=== PATIENT | male | born 1965 | race Caucasian/White ===

== ENCOUNTER 2016-06-20 13:28 | Inpatient (IN) | payer OTHER, MEDICAID ==
[~2016-06-20] VITALS: Ht 172.7 cm; Wt 120.7 kg
[2016-06-20 13:40] VITALS: BP 180/71; PULSE 98; RESP 18; TEMP 97; O2SAT 100
--- NOTE | 2016-06-20 13:40 | NUR ---
Patient triaged and placed in waiting room. VSS and patient appears in no acute distress at this time. Awaiting available bed, and MSE completed
--- NOTE | 2016-06-20 13:40 | NUR ---
ER examining patient in [facility].
--- NOTE | 2016-06-20 14:00 | NUR ---
# 20 gauge angiocath placed to R AC. Use of asceptic technique. Opsite placed over site. Blood return noted. Flushed with 10 cc of normal saline. No evidence of infiltration noted. Patient tolerated well.
--- NOTE | 2016-06-20 14:14 | NUR ---
Placed in room 05 . Placed on threat monitoring analyst, blood pressure machine and pulse oximeter. To gown for exam. Side rails up. Report given to Jeremie.
[2016-06-20 14:18] LABS: BASOPHILS # (AUTO) 0.1 K/uL (0.0-0.2); EOSINOPHILS # (AUTO) 0.2 K/uL (0.0-0.4); EOSINOPHILS % (AUTO) 2.4 % (0.0-4.0); HEMATOCRIT 47.3 % (36-54); HEMOGLOBIN 15.9 g/dL (14.0-18.0); LYMPHOCYTES # (AUTO) 2.2 K/uL (1.0-5.5); LYMPHOCYTES % (AUTO) 30.4 % (20.5-51.5); MEAN CORPUSCULAR HEMOGLOBIN 29 pg (27-31); MEAN CORPUSCULAR HGB CONC 34 % (32-36); MEAN CORPUSCULAR VOLUME 87 fL (79.0-98.0); MONOCYTES # (AUTO) 0.8 K/uL (0.0-1.0); NEUTROPHILS # (AUTO) 3.9 K/uL (1.8-7.7); NEUTROPHILS % (AUTO) 55.2 % (40.0-70.0); PLATELET COUNT (AUTO) 211 K/uL (130-430); RED BLOOD CELL COUNT(AUTO) 5.45 MIL/uL (4.2-6.2); RED CELL DISTRIBUTION WIDTH 12.8 % (9.0-15.0); WHITE BLOOD COUNT (AUTO) 7.2 K/uL (4.8-10.8)
[2016-06-20] MEDS ORDERED: NACL 0.9% 1,000 ML IV ONE (14:30)
[2016-06-20] MEDS ORDERED: INSULIN REGULAR, HUMAN 10 UNITS/0.1 ML INJ IVP ONE ×2 (14:30→15:15)
[2016-06-20 14:31] LABS: INR 0.9 (0.80-1.20); PROTHROMBIN TIME 9.6 SECS (9.5-12.5)
[2016-06-20 14:41] LABS: ALBUMIN 3.8 g/dL (3.4-4.8); ANION GAP 11 (5-15); CALCIUM 9.3 mg/dL (8.4-11.0); CHLORIDE 90 mmol/L (98-107); CREATININE 1.41 mg/dL (0.55-1.30); POTASSIUM 3.9 mmol/L (3.5-5.1); SODIUM SERUM 126 mmol/L (136-145); TOTAL BILIRUBIN 0.5 mg/dL (0.0-1.0); UREA NITROGEN, BLOOD 19 mg/dL (8-21)
[2016-06-20 14:42] LABS: GFR AFRICAN AMERICAN 68 mL/min (>90)
[2016-06-20 14:44] LABS: GLUCOSE 589 mg/dL (70-99)
[2016-06-20 14:59] LABS: ACETONE, SERUM SMALL (NEGATIVE)
--- NOTE | 2016-06-20 15:00 | NUR ---
Medication reconciliation unable to be completed d/t patient not having a list. Patient does not know correct doses.
[2016-06-20 15:17] LABS: ALANINE AMINOTRANSFERASE 47 U/L (12-78); ASPARTATE AMINOTRANSFERASE 144 U/L (10-37)
[2016-06-20] MEDS ORDERED: HYDROcodone/ACETAMIN 5-325 MG TAB (NORCO/ VICODIN) PO ONE (15:30)
[2016-06-20] MEDS ORDERED: ONDANSETRON 4 MG ODT TAB PO ONE (15:30)
[2016-06-20] MEDS ORDERED: AZITHROMYCIN 250 MG TABLET PO ONE (15:30)
[2016-06-20] MEDS ORDERED: cefTRIAXone 1 GM IVPB PREMIX 50 ML IV ONE (15:30)
--- NOTE | 2016-06-20 15:46 | NUR ---
Medicated with [place] per Dr. Gallagher's order for 10/10 bilateral upper and lower extremity pain. teach back fall precautions, requested pt to lay in gurney, pt refused states he only wants to sit on edge of gurney and that he takes more than one [place] at home on a regular basis. Bed low and one side railing up.
--- NOTE | 2016-06-20 15:57 | NUR ---
call placed for admit bed to [facility] Charge
[2016-06-20] MEDS ORDERED: DEXTROSE 50% JECT 50 ML DISP.SYRIN IVP PRN (16:30)
--- NOTE | 2016-06-20 16:30 | NUR ---
ADMIT NOTE Received pt from ER to the floor with a diagnosis of CHEST PAIN. Admission process initiated. patient oriented to pain management, safety and call light-teach back done.
--- NOTE | 2016-06-20 16:42 | NUR ---
Patient will be admitted to care of Dr. Marvin. Admitted to telemetry unit. Will go to room 108. Belongings list completed. Summary report printed. Report given to VERONICA Roche.
[2016-06-20] MEDS ORDERED: ASPIRIN 325 MG TABLET (ECOTRIN) PO ONE (16:45)
[2016-06-20 16:48] VITALS: BP 165/91; PULSE 110; RESP 17; TEMP 98.7; O2SAT 93
[2016-06-20] MEDS: cloNIDine HCL 0.1 MG TABLET PO PRN (16:56)
[2016-06-20] MEDS ORDERED: HYDR-2489 PO (17:36)
[2016-06-20] MEDS ORDERED: METF-510 PO (17:36)
[2016-06-20] MEDS ORDERED: GLIP-172 PO (17:36)
[2016-06-20] MEDS ORDERED: LOSA50TA3 PO (17:36)
[2016-06-20] MEDS ORDERED: CANA100T PO (17:36)
[2016-06-20] MEDS ORDERED: ZOLP5TAB2 PO (17:36)
[2016-06-20] MEDS: INSULIN REGULAR, HUMAN 100 UNITS/ML, 10 ML VIAL (novoLIN R) SUBCUT PRN (18:20)
--- NOTE | 2016-06-20 18:26 | NUR ---
CLOSING NOTE: PATIENT IS RESTING COMFORTABLY IN BED. NO S/S OF DISTRESS OR SOB. PATIENT IS ALERT AND ORIENTED, ABLE TO EXPRESS NEEDS, AND ASK FOR ASSISTANCE. CALL LIGHT IN REACH, BED IN LOWEST POSITION, AND WILL GIVE REPORT TO NIGHT NURSE.
[2016-06-20 20:18] VITALS: BP 143/93; PULSE 102; RESP 19; TEMP 98.2; O2SAT 95
--- NOTE | 2016-06-20 21:48 | NUR ---
PM ASSESSMENT: Received endorsement for this patient at this time. Patient sleeping comfortably. Breathing even and unlabored. No acute distress or SOB noted. IV access to the right forearm G20 on saline lock. No signs of redness or swelling at the IV site. HOB elevated at 20 degrees with 2 side rails up and bed in lowest level. Bed brakes locked. Call light within reach. Will continue to monitor.
--- NOTE | 2016-06-21 00:11 | NUR ---
BLOOD SUGAR: Scheduled accu-check done. Blood sugar at this time 331. Regular insulin coverage given. No signs of hyperglycemia noted. Will continue to monitor.
[2016-06-21] MEDS: INSULIN REGULAR, HUMAN 100 UNITS/ML, 10 ML VIAL (novoLIN R) SUBCUT PRN ×5 (00:12→22:54)
--- NOTE | 2016-06-21 00:37 | NUR ---
MD HSU CALLED [facility] AT SPOKE WITH DR.AZAB HANNA [facility] ICU RN.
[2016-06-21] MEDS ORDERED: traMADol HCL HCL 50 MG TABLET (ULTRAM) PO PRN (01:00)
[2016-06-21] MEDS ORDERED: traMADol HCL HCL 50 MG TABLET (ULTRAM) ONE (01:06)
--- NOTE | 2016-06-21 01:15 | NUR ---
RN ROUNDS: Patient alert and oriented x 4. Able to make needs know verbally. Patient complained of pain about 7/10 to his arms and legs. Called production director for pain med order. Spoke with Dr. Stokes and ordered Ultram Q6 prn. Order noted and carried out. No acute distress noted on the patient nor SOB. Will continue to monitor.
[2016-06-21 01:19] VITALS: BP 136/98; PULSE 87; RESP 16; TEMP 96.6; O2SAT 95
--- NOTE | 2016-06-21 02:10 | NUR ---
PT UPDATE: Patient was given pain medication Ultram earlier. Pain medication effective d/t patient sleeping comfortably at this time. No acute distress or SOB noted. Will continue to monitor.
--- NOTE | 2016-06-21 03:36 | NUR ---
RN ROUNDS: No significant changes with the patient at this time. Vital signs stable. Patient in no acute distress or SOB at this time. Safety and fall precautions in place. Will continue to monitor.
[2016-06-21 04:00] VITALS: BP 140/97; PULSE 90; RESP 18; TEMP 97.9; O2SAT 98
--- NOTE | 2016-06-21 06:51 | NUR ---
CLOSING NOTE: Patient still sleeping at this time. No acute distress or SOB noted. No signs of hyper or hypoglycemia noted throughout the shift. Fall and safety precautions observed. Will endorse to next shift nurse.
[2016-06-21 07:41] LABS: CHOLESTEROL 206 mg/dL (<200); HDL CHOLESTEROL 26 mg/dL (>45); LDL CHOLESTEROL 60 mg/dL (<100); TRIGLYCERIDES 844 mg/dL (30-150)
--- NOTE | 2016-06-21 07:45 | NUR ---
Initial Note Received pt in bed, no s/s of distress or sob noted, pt has pain 2/10, back pain tolerable at this time, pt in stable condition. Bed at lowest position, call light within reach, will continue to monitor pt for any changes. Fall precautions in place, Dr Marvin rounding and speaking with pt at this time. Pt has no c/o chest pain at this time.
[2016-06-21 07:46] VITALS: BP 181/113; PULSE 83; RESP 18; TEMP 98.6; O2SAT 96
--- NOTE | 2016-06-21 07:47 | NUR ---
ROUNDS Dr Yon cedeno, aware of patients condition, aware of patients high blood pressure and that there are no medications for his high blood pressure, per he will order some. Addendum: 06/21/16 at 1809 by Jessica Ravi RN PT ASYMPTOMATIC, NO HEADACHE OR DIZZINESS PER PT.
[2016-06-21] MEDS: cloNIDine HCL 0.1 MG TABLET PO PRN (08:00)
[2016-06-21] MEDS ORDERED: cloNIDine HCL 0.1 MG TABLET PO PRN (08:00)
[2016-06-21 08:13] LABS: CALCIUM 8.1 mg/dL (8.4-11.0); CREATININE 1.12 mg/dL (0.55-1.30); POTASSIUM 3.6 mmol/L (3.5-5.1); TOTAL BILIRUBIN 0.3 mg/dL (0.0-1.0)
[2016-06-21 08:14] LABS: ALBUMIN 2.8 g/dL (3.4-4.8); TOTAL PROTEIN, SERUM 6.3 g/dL (6.4-8.3)
--- NOTE | 2016-06-21 08:39 | NUR ---
Consults Order received for three consults 1)Dr Fong for Neuropathy 2) Dr Ventura for depression- Spoke with Lluvia for both consults (exchange), 3) Dr Silverio for pain management, spoke with Vannessa. Will follow up as needed.
[2016-06-21] MEDS: glipiZIDE XL 5 MG TAB ( GLUCOTROL XL) PO SCH ×2 (08:40→20:41)
[2016-06-21] MEDS: LOSARTAN POTASSIUM 50 MG TABLET (COZAAR) PO SCH (08:40)
[2016-06-21] MEDS: ASPIRIN 325 MG TABLET (ECOTRIN) PO SCH (08:40)
[2016-06-21] MEDS: MORPHINE 2 MG/ML INJ. SYRINGE IVP PRN ×3 (08:41→16:36)
--- NOTE | 2016-06-21 09:00 | NUR ---
MEDICATION REASSESSMENT PATIENTS BLOOD PRESSURE IS 142/98, HEART RATE OF 91, PT ASYMPTOMATIC, NO S/S OF DISTRESS OR SOB NOTED, PT HAS NO C/O PAIN AT THIS TIME, PT IN STABLE CONDITION, WILL CONTINUE TO MONITOR PT FOR ANY CHANGES.
--- NOTE | 2016-06-21 10:20 | NUR ---
ROUNDS PT IN BED, NO S/S OF DISTRESS OR SOB NOTED, PT HAS NO C/O PAIN AT THIS TIME, PT IN STABLE CONDITION, PT RESTING COMFORTABLY, WILL CONTINUE TO MONITOR PT FOR ANY CHANGES.
[2016-06-21 11:41] VITALS: Ht 172.7 cm; Wt 120.7 kg
[2016-06-21 12:34] VITALS: BP 138/98; PULSE 91; RESP 18; TEMP 98.1; O2SAT 96
--- NOTE | 2016-06-21 12:45 | NUR ---
ROUNDS PT IN BED, NO S/S OF DISTRESS OR SOB NOTED, PT HAS NO C/O PAIN AT THIS TIME, PT IN STABLE CONDITION, PT RESTING COMFORTABLY, WILL CONTINUE TO MONITOR PT FOR ANY CHANGES. Addendum: 06/21/16 at 1333 by Jessica Ravi RN pt c/o pain, will administer pain medication as ordered
[2016-06-21 17:00] VITALS: BP 139/99; PULSE 89; RESP 18; TEMP 98.4; O2SAT 96
--- NOTE | 2016-06-21 17:54 | NUR ---
MD ROUNDS Dr Silverio making his rounds, aware of patients condition.
--- NOTE | 2016-06-21 18:03 | NUR ---
Closing Note Pt in bed, no s/s of distress or sob noted, pt has pain 2/10, back pain tolerable at this time, pt in stable condition. Bed at lowest position, call light within reach, will endorse care of pt to incoming nurse. Fall precautions in place. Pt has no c/o chest pain at this time. Addendum: 06/21/16 at 1804 by Jessica Ravi RN pain is on lower legs
[2016-06-21] MEDS: HYDROcodone/ACETAMIN 10-325 MG TAB PO PRN ×2 (18:38→22:47)
--- NOTE | 2016-06-21 20:15 | NUR ---
Patient awake alert ambulating using rest room as needed , frequent asking for pain medication drug seeking behavior states pain is in lower legs VS stable wnl / .
[2016-06-21 20:16] VITALS: BP 136/93; PULSE 85; RESP 20; TEMP 97.5
[2016-06-21] MEDS: MORPHINE 4 MG/ML INJ. SYRINGE IVP PRN (20:42)
--- NOTE | 2016-06-21 21:12 | NUR ---
MORPHINE SULFATE 4 MG IVP given for general pain 11/18 & helpful 05/21 call barbosa with patient .
[2016-06-21] MEDS: ZOLPIDEM TARTRATE 5 MG TABLET PO PRN (22:48)
--- NOTE | 2016-06-21 23:10 | NUR ---
AMBIEN 10 MG PO given for sleep aide per patient request / .
--- NOTE | 2016-06-21 23:11 | NUR ---
DR WHITNEY exchange called regarding consultation cardiology / .
--- NOTE | 2016-06-21 23:12 | NUR ---
NORCO TABLET PO given for lower leg pain 4/10 bilateral generalized per patient request / .
--- NOTE | 2016-06-21 23:14 | NUR ---
patient is non - compliant with ordered po CCHO diet , patient educated on sugary foods & elevated glucose / .
[2016-06-22 00:34] VITALS: BP 124/76; PULSE 80; RESP 18; TEMP 98.2; O2SAT 95
[2016-06-22] MEDS: MORPHINE 4 MG/ML INJ. SYRINGE IVP PRN ×6 (00:46→22:02)
--- NOTE | 2016-06-22 01:18 | NUR ---
MORPHINE SULFATE 4 MG IVP given for pain 11/18 , patient awake also alert call barbosa with patient .
[2016-06-22] MEDS: HYDROcodone/ACETAMIN 10-325 MG TAB PO PRN ×5 (03:00→20:03)
[2016-06-22 05:35] VITALS: BP 124/69; PULSE 79; RESP 20; TEMP 98.6; O2SAT 97
[2016-06-22] MEDS: INSULIN REGULAR, HUMAN 100 UNITS/ML, 10 ML VIAL (novoLIN R) SUBCUT PRN ×3 (05:43→17:32)
--- NOTE | 2016-06-22 05:55 | NUR ---
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
--- NOTE | 2016-06-22 05:58 | NUR ---
MORPHINE SULFATE 4 MG IVP given for aches & pains generalized 11/18 encourage position change & tolerated .
[2016-06-22 08:00] VITALS: BP 130/97; PULSE 87; RESP 16; TEMP 98; O2SAT 96
--- NOTE | 2016-06-22 08:00 | NUR ---
A/OX4, no s/s of distress or sob noted, c/o generalized pain 12/19, but not chest pain at this time. SR on monitor. Bed at lowest position, call light within reach, fall precautions maintained, will continue to monitor
[2016-06-22] MEDS: ASPIRIN 325 MG TABLET (ECOTRIN) PO SCH (08:04)
[2016-06-22] MEDS: glipiZIDE XL 5 MG TAB ( GLUCOTROL XL) PO SCH ×2 (08:05→20:03)
[2016-06-22] MEDS: LOSARTAN POTASSIUM 50 MG TABLET (COZAAR) PO SCH (08:06)
--- NOTE | 2016-06-22 10:00 | NUR ---
Patient is rest, no signs of distress noted.
--- NOTE | 2016-06-22 11:45 | NUR ---
Patient blood sugar 239. 4 units of RI is given subcut.
[2016-06-22 12:20] VITALS: BP 116/79; PULSE 93; RESP 17; TEMP 98.2; O2SAT 97
--- NOTE | 2016-06-22 13:48 | NUR ---
ENDOCRINE CONSULT Spoke with Leola regarding request for consultation with Dr. Nash ([phone]) for reason: uncontrolled DM.
--- NOTE | 2016-06-22 15:50 | NUR ---
Patient c/o generalized pain 12/19. [place] 10 is given per 's order.
[2016-06-22 16:57] VITALS: BP 140/91; PULSE 83; RESP 18; TEMP 98; O2SAT 98
--- NOTE | 2016-06-22 18:00 | NUR ---
Patient blood sugar at 250. 4 units of RI is given subcut. no signs of distress noted.
--- NOTE | 2016-06-22 20:04 | NUR ---
OPENING NOTE PATIENT IS A/OX4. NO SIGNS OF DISTRESS. BREATHING IS NON LABORED. PATIENT HAD COMPLAINTS OF PAIN. GIVE PRN MEDICATION. IV IS PATENT AND SHOWS NO SIGNS OF COMPLICATIONS. PATIENT WALKED TO THE RESTROOM. GATE IS STEADY. PATIENT INSTRUCTED TO CALL FOR ASSISTANCE. WILL CONTINUE TO MONITOR. Addendum: 06/22/16 at 2148 by Kaley Rodriguez RN PATIENT DENIES CHEST PAIN.
[2016-06-22 21:43] VITALS: BP 140/98; PULSE 81; RESP 16; TEMP 97.8; O2SAT 97
--- NOTE | 2016-06-22 22:11 | NUR ---
PATIENT HAD COMPLAINTS OF PAIN. GIVE PRN MEDICATION. WILL CONTINUE TO MONITOR. PATIENT DENIES CHEST PAIN. C/O GENERALIZED PAIN.
[2016-06-23] MEDS: HYDROcodone/ACETAMIN 10-325 MG TAB PO PRN ×3 (00:10→08:28)
--- NOTE | 2016-06-23 00:10 | NUR ---
PATIENT HAD COMPLAINTS OF PAIN. NO COMPLAINTS OF CHEST PAIN. C/O GENERALIZED BODY PAIN. WILL GIVE PRN PAIN MEDICATION.
[2016-06-23] MEDS: INSULIN REGULAR, HUMAN 100 UNITS/ML, 10 ML VIAL (novoLIN R) SUBCUT PRN (00:17)
[2016-06-23 00:39] VITALS: BP 135/104; PULSE 92; RESP 22; TEMP 97.4; O2SAT 96
--- NOTE | 2016-06-23 01:11 | NUR ---
ROUNDS PATIENT IS IN BED WATCHING TV. NO SIGNS OF DISTRESS. BREATHING IS NON LABORED. ALL LIGHT IS WITHIN REACH. SAFETY MEASURES ARE IN PLACE. WILL CONTINUE TO MONITOR.
[2016-06-23] MEDS: MORPHINE 4 MG/ML INJ. SYRINGE IVP PRN ×3 (02:08→10:28)
[2016-06-23] MEDS: ZOLPIDEM TARTRATE 5 MG TABLET PO PRN (02:13)
--- NOTE | 2016-06-23 02:59 | NUR ---
ROUNDS PATIENT IS IN BED SLEEPING. NO SIGNS OF DISTRESS. BREATHING IS NON LABORED. SAFETY MEASURES ARE IN PLACE. CALL LIGHT IS WITHIN REACH. WILL CONTINUE TO MONITOR.
[2016-06-23 04:05] VITALS: BP 123/71; PULSE 68; RESP 20; TEMP 97.9; O2SAT 97
--- NOTE | 2016-06-23 04:43 | NUR ---
PAIN PATIENT HAD COMPLAINTS OF PAIN. GIVE PRN PAIN MEDICATION. WILL CONTINUE TO MONITOR.
--- NOTE | 2016-06-23 06:36 | NUR ---
CLOSING NOTES PATIENT IS IN BED WATCHING TV. NO SIGNS OF DISTRESS. BREATHING IS NON LABORED. IV IS PATENT AND SHOWS NO SIGNS OF COMPLICATIONS. ICE WATER WAS GIVEN. CALL LIGHT IS WITHIN REACH. SAFETY MEASURES ARE IN PLACE. WILL ENDORSE CARE TO THE MORNING NURSE.
--- NOTE | 2016-06-23 07:34 | NUR ---
OPENING NOTE REPORT RECEIVED FROM PLUG CUTTER RN. PT IS ASLEEP. NO SIGNS OF DISTRESS.
[2016-06-23 08:03] VITALS: BP 147/106; PULSE 87; RESP 20; TEMP 97.6; O2SAT 95
[2016-06-23] MEDS: glipiZIDE XL 5 MG TAB ( GLUCOTROL XL) PO SCH (08:27)
[2016-06-23] MEDS: ASPIRIN 325 MG TABLET (ECOTRIN) PO SCH (08:27)
[2016-06-23] MEDS: LOSARTAN POTASSIUM 50 MG TABLET (COZAAR) PO SCH (08:28)
[2016-06-23] MEDS ORDERED: FENOFIBRATE 160 MG TABLET PO SCH (09:00)
[2016-06-23 09:48] VITALS: BP 166/95; PULSE 84; RESP 20; TEMP 97; O2SAT 96
--- NOTE | 2016-06-23 10:34 | NUR ---
DC PATIENT MEDICATED PTD. IV DC'D, BLEEDING CONTROLLED AND PRESSURE DRESSING APPLIED. PT GIVEN DC INSTRUCTIONS, MED RECONCILIATION, PRESCRIPTIONS. COPY OF PRESCRIPTIONS IN CHART. CONTINUATION OF HOME MEDICATIONS. PT TAKEN TO [facility] VIA W/C WITH ALL BELONGINGS. NOTIFIED OF TRANSFER BY PATIENT. PATIENT VERBALIZED UNDERSTANDING OF MED USAGE AND DC INSTRUCTIONS. WILL FOLLOW UP INPATIENT AT [facility] [place] 2[place] PLANNED.
--- NOTE | 2016-06-25 16:15 | NUR ---
Discharge Follow Up Phone Call [facility] phoned patient, . Patient stated he had gone to [place] and walked out as it was not the place for him. He has not made any follow up appointments and did not want assistance doing so. He did not fill his prescriptions and does not plan to do so. He stated he sometimes uses his blood glucose monitor as directed. Patient has no questions or concerns and does not want any help with anything. No further calls will be made.
== END 2016-06-23 10:50 | disposition home or self-care (01) | DRG 637 ==
LOC: SED 13:28 → STU 15:31 → SMU 06-22 13:58
PROVIDERS: ADMIT Internal Medicine Hospice and Palliative Medicine; ATTEND Internal Medicine Hospice and Palliative Medicine
DX: E11.00 Type 2 diabetes mellitus with hyperosmolarity without nonketotic hyperglycemic-hyperosmolar coma (NKHHC) (principal); J18.9 Pneumonia, unspecified organism; F11.20 Opioid dependence, uncomplicated; Z68.41 Body mass index [BMI] 40.0-44.9, adult; R07.89 Other chest pain; E11.42 Type 2 diabetes mellitus with diabetic polyneuropathy; I10 Essential (primary) hypertension; N28.9 Disorder of kidney and ureter, unspecified; G56.00 Carpal tunnel syndrome, unspecified upper limb; E66.01 Morbid (severe) obesity due to excess calories; G89.4 Chronic pain syndrome; M54.5 Low back pain; Z87.891 Personal history of nicotine dependence
CPT/HCPCS: 36415; 71010; 80053; 80061; 82009-TC; 82962; 83036; 83605; 84484; 85025; 85610-TC; 85730-TC; 87040-TC; 93005; 93306; 96361; 96365; 96375; 99285; J0696; J1815; J2270; J7030; Q0144; Q0162